=== PATIENT | female | born 1990 | race Caucasian/White ===

== ENCOUNTER 2017-02-10 16:32 | Emergency (ER) | payer OTHER ==
[~2017-02-10] VITALS: Ht 165.1 cm; Wt 81.7 kg
[~2017-02-10 16:32] MED LIST: Bactrim Ds Tab1 EACH PO; CEFP200 PO; CEPH500 PO; CIPRO500 MG PO; CODACE30 PO; Cipro500 MG PO; Flagyl500 MG PO; IBUP400; IBUP800; NAPR500EC PO; Norco 5-325 Ta1 EACH PO; PENVK500 PO; PROC10 PO; Percocet 5-3251 EACH PO; Pyridium100 MG PO; RXCODACET PO; Verotin-Gr Cap1 EACH PO; Zofran Odt4 MG SL
[2017-02-10] MEDS ORDERED: Keflex500 MG PO (19:12)
[2017-02-10] MEDS ORDERED: Norco 5-325 Ta1 EACH PO (19:13)
== END 2017-02-10 19:23 | disposition home or self-care (01) ==
LOC: ER 16:32
DX: N61.1 Abscess of the breast and nipple (principal); J44.9 Chronic obstructive pulmonary disease, unspecified; F17.200 Nicotine dependence, unspecified, uncomplicated; Z79.899 Other long term (current) drug therapy; Z90.89 Acquired absence of other organs
CPT/HCPCS: 10160; 87070; 87075; 87077; 87147; 87186; 87205; 96372; 99283; J0696

== ENCOUNTER 2017-02-12 04:13 | Emergency (ER) | payer OTHER ==
[~2017-02-12] VITALS: Ht 165.1 cm; Wt 86.2 kg
[~2017-02-12 04:13] MED LIST changes: +Keflex500 MG PO
[2017-02-12 06:00] LABS: BASOPHILS ABSOLUTE AUTO 0.02 K/mm3 (0.00-0.23); BASOPHILS PERCENT AUTO 0 % (0-2); EOSINOPHILS ABSOLUTE AUTO 0.46 K/mm3 (0.00-0.68); EOSINOPHILS PERCENT AUTO 4 % (0-6); Hematocrit 38.8 % (33.0-51.0); Hemoglobin 13.2 g/dL (11.5-16.0); IMMATURE GRAN ABSOLUTE AUTO 0.03 K/mm3 (0.00-0.10); IMMATURE GRAN PERCENT AUTO 0 % (0-1); LYMPHOCYTES ABSOLUTE AUTO 1.72 K/mm3 (0.84-5.20); LYMPHOCYTES PERCENT AUTO 14 % (21-46); MONOCYTES ABSOLUTE AUTO 0.66 K/mm3 (0.16-1.47); MONOCYTES PERCENT AUTO 5 % (4-13); Mean Corpuscular HGB 30.3 pg (26.0-34.0); Mean Corpuscular Volume 89 fL (80-100); Mean Platelet Volume 8.8 fL (9.1-12.4); NEUTROPHILS ABSOLUTE AUTO 9.76 K/mm3 (1.96-9.15); NEUTROPHILS PERCENT AUTO 77 % (41-73); Platelet Count 262 K/mm3 (150-400); RDW Coefficient Variation 12.1 % (11.7-14.2); RDW Standard Deviation 39.2 fL (35.1-46.3); Red Blood Cell Count 4.36 M/mm3 (3.80-5.20); White Blood Cell Count 12.65 K/mm3 (4.00-11.30)
[2017-02-12] MEDS ORDERED: HYDR1TAB94 PO (06:07)
[2017-02-12] MEDS ORDERED: Vibramycin100 MG PO (06:07)
[2017-02-12 06:15] LABS: Anion Gap 6 mmol/L (6-16); Blood Urea Nitrogen 16 mg/dL (8-24); Bun/Creatinine Ratio 27.3 (12.0-20.0); CO2, Blood 25 mmol/L (21-32); Calcium, Blood 8.5 mg/dL (8.5-10.1); Chloride, Blood 104 mmol/L (98-108); Creatinine, Blood 0.59 mg/dL (0.40-1.00); Glomerular Filtration Rate >60 (60-); Glucose, Blood 96 mg/dL (70-99); Potassium, Blood 3.9 mmol/L (3.5-5.5); Sodium, Blood 135 mmol/L (136-145)
== END 2017-02-12 07:32 | disposition home or self-care (01) ==
LOC: ER 04:13
PROVIDERS: Emergency Medicine
DX: N61.1 Abscess of the breast and nipple (principal); F41.9 Anxiety disorder, unspecified; F17.200 Nicotine dependence, unspecified, uncomplicated; Z79.899 Other long term (current) drug therapy; Z90.89 Acquired absence of other organs
CPT/HCPCS: 10160; 80048; 85025; 96365; 96372; 99284; J2270; J3370; J7050

== ENCOUNTER 2017-03-29 21:51 | Emergency (ER) | payer OTHER ==
[~2017-03-29] VITALS: Ht 165.1 cm; Wt 83.9 kg
[~2017-03-29 21:51] MED LIST changes: +HYDR1TAB94 PO; +Vibramycin100 MG PO
[2017-03-29] MEDS ORDERED: CEPH500 PO (22:40)
== END 2017-03-29 22:47 | disposition home or self-care (01) ==
LOC: ER 21:51
DX: O23.41 Unspecified infection of urinary tract in pregnancy, first trimester (principal); Z79.899 Other long term (current) drug therapy; Z79.891 Long term (current) use of opiate analgesic; Z79.2 Long term (current) use of antibiotics; O99.341 Other mental disorders complicating pregnancy, first trimester; F41.9 Anxiety disorder, unspecified; O99.331 Smoking (tobacco) complicating pregnancy, first trimester; F17.210 Nicotine dependence, cigarettes, uncomplicated
CPT/HCPCS: 81025; 99283

== ENCOUNTER 2017-03-31 19:20 | Emergency (ER) | END 2017-03-31 21:04 | disposition home or self-care (01) ==

== ENCOUNTER → 2018-08-16 | Outpatient (CLI) | payer OTHER ==
[~2018-08-16] MED LIST changes: +HYDR1TAB94; +IBUP800 PO; +Vitafol-Ob+Dha1 EACH PO
[2018-08-18 07:07] LABS: CHLAMYDIA TRACHOMATIS, NAA Negative (Negative); NEISSERIA GONORRHOEAE, NAA Negative (Negative)
== END | disposition home or self-care (01) ==
LOC: LAB 09:42 → LAB SHORT 09:42
PROVIDERS: Obstetrics & Gynecology
DX: Z36.89 Encounter for other specified antenatal screening (principal)
CPT/HCPCS: 87081; 87491; 87591; 87653; G0123

== ENCOUNTER → 2018-09-05 | Outpatient (CLI) | payer OTHER ==
[2018-09-05 14:33] LABS: Bilirubin, Urine Neg (Neg); Blood, Urine 2+ (Neg); Glucose Qualitative, Urine Neg (Neg); Ketones, Urine Neg (Neg); Leukocyte Esterase, Urine 3+ (Neg); Nitrite, Urine Neg (Neg); Protein, Urine 1+ (Neg); Urobilinogen, Urine NORM (Normal)
[2018-09-05 15:11] LABS: Appearance, Urine Cloudy (Clear); Color, Urine Yellow (P-Yellow)
[2018-09-05 15:13] LABS: Bacteria Many /hpf; Squamous Epithelial Cells Many /hpf (Few)
== END | disposition home or self-care (01) ==
LOC: LAB 13:17 → LAB SHORT 13:17
PROVIDERS: Obstetrics & Gynecology
DX: R82.998 Other abnormal findings in urine (principal)
CPT/HCPCS: 81001; 87077; 87086; 87186

== ENCOUNTER 2018-09-24 04:40 | Inpatient (IN) | payer OTHER ==
[~2018-09-24] VITALS: Ht 165.1 cm; Wt 84.7 kg
[~2018-09-24 04:40] MED LIST changes: -HYDR1TAB94; -IBUP800 PO; -Vitafol-Ob+Dha1 EACH PO
[2018-09-24] MEDS ORDERED: Vitafol-Ob+Dha1 EACH PO (04:56)
[2018-09-24 05:01] LABS: BASOPHILS ABSOLUTE AUTO 0.06 K/mm3 (0.00-0.23); BASOPHILS PERCENT AUTO 0 % (0-2); EOSINOPHILS ABSOLUTE AUTO 0.38 K/mm3 (0.00-0.68); EOSINOPHILS PERCENT AUTO 2 % (0-6); Hematocrit 36.9 % (33.0-51.0); Hemoglobin 12.3 g/dL (11.5-16.0); IMMATURE GRAN ABSOLUTE AUTO 0.13 K/mm3 (0.00-0.10); IMMATURE GRAN PERCENT AUTO 1 % (0-1); LYMPHOCYTES ABSOLUTE AUTO 2.46 K/mm3 (0.84-5.20); LYMPHOCYTES PERCENT AUTO 15 % (21-46); MONOCYTES ABSOLUTE AUTO 0.91 K/mm3 (0.16-1.47); MONOCYTES PERCENT AUTO 6 % (4-13); Mean Corpuscular HGB 31.5 pg (26.0-34.0); Mean Corpuscular HGB Conc 33.3 g/dL (31.5-36.5); Mean Corpuscular Volume 95 fL (80-100); Mean Platelet Volume 9.3 fL (9.1-12.4); NEUTROPHILS ABSOLUTE AUTO 12.58 K/mm3 (1.96-9.15); NEUTROPHILS PERCENT AUTO 76 % (41-73); Platelet Count 214 K/mm3 (150-400); RDW Coefficient Variation 12.6 % (11.7-14.2); RDW Standard Deviation 43.3 fL (35.1-46.3); White Blood Cell Count 16.52 K/mm3 (4.00-11.30)
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
--- NOTE | 2018-09-24 12:20 | NUR ---
REPORT TO ANGEL HOLLOWAY RN
--- NOTE | 2018-09-24 15:05 | NUR ---
ASSUMED CARE. AMBULATING IN HALLS WITH FAMILY. NO QUESTIONS OF CONCERNS.
--- NOTE | 2018-09-24 23:57 | NUR ---
PATIENT BROUGHT BABY TO [employer] FOR SECOND TIME TONIGHT. FIRST TIME THE PARENTS SPENT ABOUT AN HOUR OUTSIDE, SECOND TIME WAS 30 MINS.
[2018-09-25 06:02] LABS: Source, Urine Clean Catch
[2018-09-25 06:13] LABS: Hematocrit 31.7 % (33.0-51.0); Hemoglobin 10.6 g/dL (11.5-16.0); Mean Corpuscular HGB 31.3 pg (26.0-34.0); Mean Corpuscular HGB Conc 33.4 g/dL (31.5-36.5); Mean Corpuscular Volume 94 fL (80-100); Mean Platelet Volume 9.6 fL (9.1-12.4); Platelet Count 197 K/mm3 (150-400); RDW Coefficient Variation 12.8 % (11.7-14.2); RDW Standard Deviation 43.7 fL (35.1-46.3); Red Blood Cell Count 3.39 M/mm3 (3.80-5.20); White Blood Cell Count 10.81 K/mm3 (4.00-11.30)
[2018-09-25 06:22] LABS: Bilirubin, Urine Neg (Neg); Blood, Urine 5+ (Neg); Glucose Qualitative, Urine Neg (Neg); Ketones, Urine Neg (Neg); Leukocyte Esterase, Urine 3+ (Neg); Nitrite, Urine Neg (Neg); Protein, Urine 2+ (Neg); Urobilinogen, Urine NORM (Normal)
[2018-09-25 06:36] LABS: Appearance, Urine Cloudy (Clear); Color, Urine Amber (P-Yellow)
[2018-09-25 06:39] LABS: Bacteria Mod /hpf; Squamous Epithelial Cells Few /hpf (Few); White Blood Cells, Urine TNTC /hpf (0-5)
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
--- NOTE | 2018-09-25 06:49 | NUR ---
[facility] TRAN[facility]ORT[facility] AGREES WITH PLANNED SURGERY. LUNG SOUNDS CLEAR.
--- NOTE | 2018-09-25 07:32 | NUR ---
PT OFF FLOOR FOR TUBAL.
[2018-09-25] MEDS ORDERED: IBUP800 PO (09:38)
[2018-09-25] MEDS ORDERED: HYDR1TAB94 (09:38)
--- NOTE | 2018-09-25 10:21 | NUR ---
STERI STRIPS INTACT, SATURATED WITH DRY BLOOD.
--- NOTE | 2018-09-25 12:15 | NUR ---
PATIENT UP AMBULATING, TOLERATING WELL.
--- NOTE | 2018-09-25 14:48 | NUR ---
NOTIFIED RUFUS FROM [facility] REGARDING PATIENT DISCHAGRING HOME.
--- NOTE | 2018-09-25 15:41 | NUR ---
DISCHARGE INSTRUCTIONS REVIEWED AND SIGNED. ALL QUESTIONS ANSWERED. BANDS MATCHED. DISCHARGED TO HOME WITH FAMILY MEMBERS AND INFANT.
== END 2018-09-25 15:40 | disposition home or self-care (01) | DRG 798 ==
LOC: OBS 04:40 → BC 04:49
PROVIDERS: ADMIT Obstetrics & Gynecology
PROC: 10E0XZZ Delivery of Products of Conception, External Approach (ICD-10-PCS; principal; 2018-09-24)
PROC: 10907ZC Drainage of Amniotic Fluid, Therapeutic from Products of Conception, Via Natural or Artificial Opening (ICD-10-PCS; 2018-09-24)
PROC: 0UB70ZZ Excision of Bilateral Fallopian Tubes, Open Approach (ICD-10-PCS; 2018-09-25)
DX: O99.334 Smoking (tobacco) complicating childbirth (principal); Z37.0 Single live birth; Z3A.41 41 weeks gestation of pregnancy; Z30.2 Encounter for sterilization; F17.210 Nicotine dependence, cigarettes, uncomplicated
CPT/HCPCS: 36415; 81001; 85025; 85027; 86850; 86900; 86901; 87077; 87086; 87186; 88302; J0330; J0696; J1885; J2210; J2250; J2590; J2704; J2710; J3010; J7120